=== PATIENT | male | born 1945 | race Caucasian/White ===

== ENCOUNTER 2020-11-04 11:57 | Emergency (ER) | payer MEDICARE, SELFPAY ==
--- NOTE | ~2020-11-04 | CT_ITS ---
EXAMINATION: CT abdomen pelvis wo con DATE: 11/04/2020 12:56 INDICATION: Left flank pain. TECHNIQUE: Computed tomography (CT) of the abdomen and pelvis was performed without intravenous contr ast. Automated exposure control and iterative reconstruction technique were employed. The dose-length product was 1330.12 mGy-cm. COMPARISON: None FINDINGS: Scattered calcified pulmonary nodules at the bilateral lower lungs consistent with old granulomatous disease. Heart size is normal. Atherosclerotic coronary artery calcification. No pericardial or pleur al effusion. Diffuse hepatic steatosis with focal sparing along the gallbladder fossa. Gallbladder, s pleen, pancreas, bilateral adrenal glands and kidneys are normal. No urolithiasis. Ventral diastases with moderate-sized fat-containing umbilical hernia which contains a short loop of nonobstructed smal l bowel. There are few scattered colonic diverticula without adjacent inflammatory change to suggest diverticulitis. Normal appendix. Thin rim of soft tissue density surrounding a tiny central vessel co ntaining epiploic appendage along the sigmoid colon which is without appreciable surrounding inflamma tory stranding which is more likely related to chronic than acute epiploic appendagitis. Bladder is n ormal. Prostatomegaly. No free intraperitoneal gas or fluid. No pathologically enlarged abdominal or pelvic lymphadenopathy. Severe lower lumbar spondylosis. IMPRESSION: 1. 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 2. Moderate-sized umbilical hernia containing short segment of nonobstructed small bowel. 3. Diffuse hepatic steatosis. 4. Mild diverticulosis. 5. Mild prostatomegaly. Reviewed, dictated and finalized at location A. [facility] IMPRESSION: 1. 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 2. Moderate-sized umbilical hernia containing short segment of nonobstructed sm all bowel. 3. Diffuse hepatic steatosis. 4. Mild diverticulosis. 5. Mild prostatomegaly.
[2020-11-04 12:18] VITALS: BP 178/100; PULSE 104; RESP 20; TEMP 36.8; O2SAT 95
[2020-11-04] MEDS: SODIUM CHLORIDE 0.9% IV 1,000 ML 999 ML IV CONT (12:35)
[2020-11-04] MEDS: KETOROLAC 30 MG/ML VIAL (*BKC) IV PUSH (12:35)
[2020-11-04 12:40] LABS: Add Urine Microscopic? NO; Appearance Urine Clear (Clear); Bilirubin Urine Negative (Negative); Blood Urine Negative (Negative); Color Urine Yellow (Yellow); Glucose Urine UA Negative (Negative); Ketones Urine Negative (Negative); Leukocyte Esterase Ur Negative (Negative); Nitrate Urine Negative (Negative); Protein Urine Negative (Negative); Specific Grav Ur 1.015 (1.010-1.020); Urobilinogen Urine 0.2 mg/dL (0.2-1.0)
[2020-11-04 12:40] LABS: Basophils Absolute Auto 0.04 K/mm3 (0.00-0.10); Basophils Percent Auto 0.5 % (0.0-1.0); Eosinophils Absolute Auto 0.05 K/mm3 (0.02-0.50); Eosinophils Percent Auto 0.6 % (1.0-6.0); Hematocrit 47.2 % (37.0-46.0); Immature Granulocyte Absolute 0.04 K/mm3 (0.00-0.00); Immature Granulocyte Percent A 0.5 % (0.0-0.0); Lymphocytes Absolute Auto 1.16 K/mm3 (1.10-4.50); Lymphocytes Percent Auto 14.3 % (18.0-42.0); Mean Corpuscular HGB Conc 33.9 g/dL (32.0-36.0); Mean Corpuscular Hemoglobin 31.9 pg (27.0-31.0); Mean Corpuscular Volume 94.2 fL (78.0-102.0); Monocytes Absolute Auto 0.71 K/mm3 (0.10-0.90); Monocytes Percent Auto 8.8 % (2.0-11.0); Neutrophils Absolute Auto 6.1 K/mm3 (1.7-7.2); Neutrophils Percent Auto 75.3 % (50.0-70.0); Platelet Count Result 228 K/mm3 (150-420); Red Blood Count 5.01 M/mm3 (4.70-6.10); Red Cell Distribution Width 11.9 % (11.6-14.4); White Blood Count 8.1 K/mm3 (4.8-10.8)
[2020-11-04 12:54] LABS: Alanine Aminotransferase 27 U/L (16-63); Albumin Level 3.8 g/dL (3.4-5.0); Alkaline Phosphatase 69 U/L (46-116); Anion Gap 11 mmol/L (8-16); Aspartate Amino Transferase 17 U/L (15-37); Bilirubin,Total 1.1 mg/dL (0.00-1.00); Blood Urea Nitrogen 11 mg/dL (7-18); Calcium 8.5 mg/dL (8.5-10.1); Carbon Dioxide 26 mmol/L (21-32); Chloride 104 mmol/L (98-108); Estimated CRCL calculation 78 ml/min; Estimated Glomerular Filt Rate > 60; Glucose 115 mg/dL (70-99); Osmolality Calculated 292 mOsm/kg (285-295); Potassium 3.7 mmol/L (3.5-5.1); Sodium 141 mmol/L (136-145); Total Protein 6.9 g/dL (6.4-8.2)
[2020-11-04] MEDS: MORPHINE SULFATE (*CRX) 2 MG/ML INJ IV PUSH (13:20)
--- NOTE | 2020-11-04 13:36 | ED.BACK ---
HPI - Back Pain/Injury General Chief Complaint: Urogenital-Male Stated Complaint: back pain left side Source: patient Mode of arrival: ambulatory Limitations: no limitations History of Present Illness HPI Narrative: This is a 74-year-old gentleman presents to the emergency department with left flank pain radiates into his left groin, with some no fever chills no chest pain no shortness of breath has been having some nausea with no vomiting no dysuria or hematuria no history of kidney stones. Patient does have a history of hyperlipidemia that he takes atorvastatin. Pain started overnight and intensified and has been off and on at about a 7/10. MD elicited complaint: back pain Onset (ago): day(s) Timing: intermittent Severity: moderate Pain scale (0-10): 7 Similar Symptoms Previously: No Quality: dull Location: left flank Radiation: abdomen Exacerbating factors: none Relieving factors: none Related Data Allergies Allergy/AdvReac Type Severity Reaction Status Date / Time codeine Allergy Unknown NAUSEA Verified 11/04/20 12:24 Penicillins Allergy Unknown Skin Verified 11/04/20 12:24 Reaction Review of Systems Review of Systems: All systems reviewed & are unremarkable except as noted in HPI and below PMFSH Past Medical History Medical History Mixed hyperlipidemia Surgical History Surgical History H/O adenoidectomy History of repair of rotator cuff Hx of tonsillectomy Family History Family History Mother Family history of cardiac disorder Carcinoma of colon Colon polyp Sibling Malignant neoplasm of prostate, Onset Age: 55 Father Family history of malignant neoplasm of urinary bladder Social History Social History Smoking status: Never smoker Alcohol intake: never Gender identity (if verbalized by the patient): Female Exam Const: General: no acute distress and alert Orientation/consciousness: patient oriented x3 HENMT: Head: normal to inspection Eyes: Conjunctivae: conjunctivae normal Pupils: Equal, round and reactive pupils present Chest: Chest palpation & inspection: normal inspection of the chest Resp: Effort & Inspection: normal respiratory effort Cardio: Rate: regular rate Rhythm: regular rhythm GI: Auscultation: normal bowel sounds : Testes: Testes normal Urinary Catheter: Urinary Catheter: patent and draining Back/Spine/Pelvis: Back: CVA tenderness ( Left flank) Skin: General skin exam: normal color Rashes: no rashes Neuro: General: patient oriented x3, moves all extremities and no meningeal signs Other: negative straight leg raising test Extrem: General: normal to inspection and no pedal edema Psych: Mental Status: mental status grossly normal Course Course Emergency Course: reassessment of patient continues to have flank pain after injection of Toradol, offered patient 2 mg of morphine. Reviewed the lab findings as well as a urinalysis and CT findings with the patient and explain there was no acute findings although there is some abnormalities that he should follow-up with his primary care physician. Vital Signs Vital signs: Vital Signs Temperature 36.8 C 11/04/20 12:18 Pulse Rate 104 H 11/04/20 12:18 Respiratory Rate 20 11/04/20 12:18 Blood Pressure 178/100 H 11/04/20 12:18 Pulse Oximetry 95 11/04/20 12:18 Temperature 36.8 C 11/04/20 12:18 Pulse Rate 104 H 11/04/20 12:18 Respiratory Rate 20 11/04/20 12:18 Blood Pressure 178/100 H 11/04/20 12:18 Pulse Oximetry 95 11/04/20 12:18 MDM - Back Pain/Injury Lab Data Result diagrams: 11/04/20 12:34 11/04/20 12:34 Labs: Lab Results 11/04/20 11/04/20 11/04/20 Range/Units 12:21 12:34 12:34 WBC 8.1 (4.8-10.8) K/
[2020-11-04 14:00] VITALS: BP 156/84; PULSE 92; RESP 20; O2SAT 95
== END 2020-11-04 14:00 | disposition home or self-care (01) ==
PROVIDERS: Emergency Provider Emergency Medicine; PCP Family Medicine
DX: R10.9 Unspecified abdominal pain (principal); E78.2 Mixed hyperlipidemia
CPT/HCPCS: 36415; 74176; 80053; 81003; 85025; 96361; 96374; 96375; 99284; J1885; J2270; J7030